=== PATIENT | female | born 1990 ===

== ENCOUNTER 2025-08-19 11:00 | Outpatient (CLI) | payer OTHER | END 2025-08-19 14:32 | disposition home or self-care (01) | LOC: NST 11:00 | PROVIDERS: ATTEND Obstetrics & Gynecology | DX: Z34.83 Encounter for supervision of other normal pregnancy, third trimester (principal) ==

== ENCOUNTER 2025-08-19 14:15 | Inpatient (IN) | payer OTHER ==
[~2025-08-19] VITALS: Ht 160 cm; Wt 72.6 kg
[2025-08-24 08:15] VITALS: BP 115/78
[2025-08-24] MEDS ORDERED: MORPHINE SULFATE 4 MG/ML CARTRIDGE IV PRN (09:00)
[2025-08-24] MEDS ORDERED: RINGERS SOLUTION,LACTATED 10,000 ML IV SCH (09:00)
[2025-08-24] MEDS ORDERED: OXYTOCIN IV SCH (09:00)
[2025-08-24 09:35] LABS: BASO % 0.3 % (0.1-1.2); EOS # 0.01 (0.04-0.54); EOS % 0.1 % (0.7-7.0); LYMPH # 1.84 (1.18-3.74); LYMPH % 16.4 % (19.3-53.1); MEAN PLATELET VOLUME 10.50 fl (9.4-12.4); MONO # 0.37 (0.24-0.82); MONO % 3.3 % (4.7-12.5); NEUT # 8.88 (1.56-6.13); NEUT % 79.4 % (34.0-71.1); RED CELL DISTRIBUTION WIDTH 12.5 % (11.6-14.4)
[2025-08-24 09:44] LABS: URINE APPEARANCE Clear; URINE BILIRRUBIN Negative (NEGATIVE); URINE BLOOD Negative; URINE COLOR Yellow; URINE GLUCOSE Negative (NEGATIVE); URINE KETONE 15 (NEGATIVE); URINE LEUKOCYTE Small; URINE NITRATE Negative; URINE PROTEIN Trace (NEGATIVE); URINE UROBILINOGEN 0.2 E.U./dl
[2025-08-24] MEDS ORDERED: RINGERS SOLUTION,LACTATED 1,000 ML IV SCH (09:45)
[2025-08-24] MEDS ORDERED: OXYTOCIN 500 ML IV SCH (09:45)
[2025-08-24 09:47] LABS: URINE BACTERIA 844.7 uL (0.0-1933); URINE EPITHELIAL CELLS 42.5 uL (0.0-38.8); URINE RBC 3.6 uL (0.0-20.8); URINE WBC 14.9 uL (0.0-23.2)
[2025-08-24 10:05] LABS: INR < 0.93
[2025-08-24 10:17] LABS: URINE CAST 0.29 uL (0.0-1.40)
[2025-08-24 10:21] LABS: ALT/SGPT 27.0 U/L (12-78); AST/SGOT 28.0 U/L (15-37); BILIRUBIN TOTAL 0.46 mg/dL (0.3-1.2); BUN CREA RATIO 19.0 (7.0-25.0); CREATININE SERUM 0.85 mg/dL (0.55-1.02); GFR 77.51; GLOBULINA 5.1 G/DL (2.4-3.5); GLUCOSE FASTING 79.0 mg/dL (65-100); OSMOLALITY SERUM 270.0 MOSM/KG (275-295)
[2025-08-24] MEDS ORDERED: LIDOCAINE HCL 1% 10ML VIAL ONE (10:28)
[2025-08-24] MEDS ORDERED: ERYTHROMYCIN BASE OPHT 1GM EACH TUBE OP ONE (10:28)
[2025-08-24] MEDS ORDERED: OXYTOCIN 20 UNITS/1000ML RL PIGGYBAG IV ONE (10:28)
[2025-08-24] MEDS ORDERED: CHLORHEXIDINE GLUCONATE 120 ML BOTTLE TOP ONE (10:28)
[2025-08-24] MEDS ORDERED: PRENATA CHEWAB1 EACH PO (11:28)
[2025-08-24 11:36] VITALS: BP 124/85
[2025-08-24 11:45] VITALS: BP 135/85
[2025-08-24 12:00] VITALS: BP 134/93
[2025-08-24] MEDS ORDERED: ACETAMINOPHEN WITH CODEINE 1 UDTAB TABLET PO PRN (12:00)
[2025-08-24] MEDS ORDERED: OXYTOCIN 1,000 ML IV SCH (12:00)
[2025-08-24] MEDS ORDERED: CHLORHEXIDINE GLUCONATE 120 ML BOTTLE TOP SCH (12:00)
[2025-08-24 13:32] VITALS: BP 128/80
[2025-08-24 16:00] VITALS: BP 122/83
[2025-08-25 01:47] VITALS: BP 105/70
[2025-08-25 03:00] VITALS: BP 107/68
[2025-08-25 08:00] VITALS: BP 117/78
[2025-08-25 16:13] VITALS: BP 126/80
[2025-08-26] VITALS: BP 118/66
[2025-08-26 08:00] VITALS: BP 134/80
== END 2025-08-26 14:22 | disposition home or self-care (01) | DRG 807 ==
LOC: EDUNIT# 14:15 → LDR 08-24 07:48 → OB/GYN 08-24 09:02 → LDR 08-26 14:15 → OB/GYN 08-26 14:22
PROVIDERS: ADMIT Obstetrics & Gynecology; ATTEND Obstetrics & Gynecology
PROC: 10E0XZZ Delivery of Products of Conception, External Approach (ICD-10-PCS; principal; 2025-08-24)
PROC: 0UQMXZZ Repair Vulva, External Approach (ICD-10-PCS; 2025-08-24)
PROC: 4A1HXCZ Monitoring of Products of Conception, Cardiac Rate, External Approach (ICD-10-PCS; 2025-08-24)
DX: O71.82 Other specified trauma to perineum and vulva (principal); Z37.0 Single live birth; Z3A.39 39 weeks gestation of pregnancy

== ENCOUNTER 2025-08-22 14:50 | Outpatient (CLI) | payer OTHER | END 2025-08-22 16:23 | disposition home or self-care (01) | LOC: NST 14:50 | PROVIDERS: ATTEND Obstetrics & Gynecology Gynecology | DX: Z34.83 Encounter for supervision of other normal pregnancy, third trimester (principal) ==